=== PATIENT | male | born 1975 | race Caucasian/White ===

== ENCOUNTER 2020-03-15 07:36 | Day surgery (SDC) | payer OTHER, SELFPAY ==
[~2020-03-15] VITALS: Ht 190.5 cm; Wt 108.9 kg
[2020-03-15] MEDS ORDERED: DIPHENHYDRAMINE INJ 50 MG/ML VIAL IV ONE (07:37)
[2020-03-15] MEDS ORDERED: BUPIVACAINE /PF 0.25% 30 ML VIAL INJ ONE (07:37)
[2020-03-15] MEDS ORDERED: IOPAMIDOL 50 ML VIAL IV ONE (07:37)
[2020-03-15] MEDS ORDERED: methylPREDNISolone ACETATE 80 MG/ML IM ONE (07:37)
[2020-03-15] MEDS ORDERED: LIDOCAINE 2%, 20 ML MDV INJ ONE (07:37)
[2020-03-15] MEDS ORDERED: DIPHENHYDRAMINE INJ 50 MG/ML VIAL ONE (08:41)
[2020-03-15] MEDS ORDERED: MIDAZOLAM HCL 5 MG/5 ML VIAL ONE (08:41)
[2020-03-15 10:18] VITALS: BP_SYST 119
== END 2020-03-15 11:10 | disposition home or self-care (01) ==
LOC: SDS 07:36 → SMU 07:37 → SDS 11:10
PROVIDERS: ATTEND Internal Medicine
DX: M50.123 Cervical disc disorder at C6-C7 level with radiculopathy (principal); Z20.828 Contact with and (suspected) exposure to other viral communicable diseases
CPT/HCPCS: 62321; J1040; J1200; J2001; J2250; J3490; J7120; Q9967; U0003; 76000